=== PATIENT | female | born 1990 | race African-American/Black ===

== ENCOUNTER 2021-06-28 11:49 | Emergency (ER) | payer OTHER, SELFPAY ==
[~2021-06-28] VITALS: Ht 157.5 cm; Wt 79.4 kg
--- NOTE | 2021-06-28 12:00 | NUR ---
Pt. here concerned about covid exposure, came in with boyfriend who has been sick X 4 days, and now she has BUSH X 2 days and is 20 weeks so would like to be tested for covid
[2021-06-28 12:19] VITALS: BP_SYST 109
--- NOTE | 2021-06-28 12:20 | NUR ---
DR DUNLAP OUT SIDE TO EVALUATE PT
[2021-06-28 13:35] VITALS: BP_SYST 113
--- NOTE | 2021-06-28 13:35 | NUR ---
Patient given written and verbal discharge instructions and verbalizes understanding. ER Dr. Cazares discussed with patient the results and treatment provided. Patient in stable condition. ID arm band removed. Patient educated to follow up with PMD. Pain Scale 3. Opportunity for questions provided and answered.
== END 2021-06-28 15:00 | disposition home or self-care (01) ==
LOC: SED 14:57
DX: B34.9 Viral infection, unspecified (principal); R51.9 Headache, unspecified; Z20.822 Contact with and (suspected) exposure to COVID-19
CPT/HCPCS: 99283; C9803; U0003